=== PATIENT | female | born 1980 | race Caucasian/White ===

== ENCOUNTER → 2016-08-07 | Outpatient (CLI) | payer BC ==
--- NOTE | 2016-08-07 11:00 | DIAGNOSTIC IMAGING REPORT ---
MRI OF THE LEFT ANKLE WITHOUT IV CONTRAST CLINICAL HISTORY: Left foot and heel pain. COMPARISON STUDY: Radiographs of the left foot dated 06/05/2016. TECHNIQUE: MRI of the left ankle is performed utilizing various T1 and T2-weighted sequences in the axial, sagittal, and coronal planes. IV contrast was not administered for this examination. FINDINGS: Normal marrow signal intensity is preserved throughout the visualized bony structures. There is no MRI evidence of fracture. No osteochondral defect is seen in the talar dome. There is maintenance of normal fat within the sinus tarsi. A cutaneous marker has been placed over the lateral aspect of the hindfoot at the level of the calcaneocuboid articulation. No abnormality is identified at this site. This overlies the peroneus brevis tendon which is intact. There is thickening of the peroneus longus tendon as it passes beneath the cuboid, best seen on axial image #30 and coronal image #13. This is consistent with tendinopathy and partial-thickness tear. The majority of the fibers remain intact. The Achilles tendon is normal in morphology and signal intensity. The anterior and posterior tendons are maintained. There is thickening and irregularity of the anterior talofibular ligament, likely related to remote injury. No overlying soft tissue edema is seen. The anterior and posterior tibiofibular ligaments are intact. The deltoid, calcaneofibular, and spring ligaments are intact as visualized. There is a small volume of nonspecific fluid seen posterior to the ankle joint. The regional musculature is normal in bulk and signal intensity. The plantar fascia is normal as visualized. A tiny ganglion cyst is incidentally noted on the lateral aspect of the hindfoot measuring 10 mm as seen on axial image #30. IMPRESSION: 1. The peroneus longus tendon is thickened as it passes beneath the cuboid. This is consistent with tendinopathy and partial-thickness tear. The majority of the fibers remain intact. 2. The peroneus brevis tendon is normal in appearance, as are the anterior and posterior tendons. 3. No bony abnormality is identified. 4. 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 5. Additional changes as above. Dictated: 08/07/2016 10:20 AM Transcribed: 08/07/2016 11:00 AM [facility] Electronically signed by: Zach Blood M.D. 08/07/2016 11:02 AM Dictated Date/Time: 08/07/2016 10:20 AM
== END | disposition home or self-care (01) ==
LOC: C.MRIBC 09:17
PROVIDERS: ATTEND Orthopaedic Surgery
DX: M79.672 Pain in left foot (principal)

== ENCOUNTER → 2017-06-12 | Outpatient (CLI) | payer BC ==
--- NOTE | 2017-06-13 07:21 | DIAGNOSTIC IMAGING REPORT ---
MRI OF THE RIGHT SHOULDER WITHOUT CONTRAST CLINICAL HISTORY: Right shoulder pain. Calcific tendinitis. COMPARISON STUDY: MRI of the right shoulder August 10, 2014 and right shoulder radiographs August 11, 2014. TECHNIQUE: Utilizing a 1.5 [place] magnet and dedicated coil, multiplanar, multiecho imaging of the right shoulder was performed without intravenous or intra-articular contrast. FINDINGS: Alignment of the right shoulder is anatomic. There is no marrow edema or marrow replacement. Note is made of capsular hypertrophy of the acromioclavicular joint consistent with osteoarthritis. There is mild osteoarthritis of the glenohumeral joint. Note is made of fluid within the subacromial/subdeltoid bursa. Glenoid labrum is suboptimally assessed on this nonarthrogram exam however signal within the posterior superior labrum suggests a posterior superior labral tear. Note is made of a 2.2 x 0.7 cm T1 and T2 hypointense abnormality within the superior aspect of the distal infraspinatus and supraspinatus which has increased in size since MRI of August 10, 2014. This is consistent with calcific tendinitis. There is increased signal within the distal fibers of supraspinatus consistent with tendinopathy with full-thickness rotator cuff tear. There is tendinopathy of infraspinatus without full-thickness tear. Subscapularis and teres minor are intact. There is no tendon retraction or significant muscular atrophy. Proximal long head of the biceps tendon is intact. IMPRESSION: 1. Increase in calcific tendinitis involving distal supraspinatus and infraspinatus since exam of August 10, 2014. 2. Increased signal consistent with tendinopathy of distal supraspinous. No full-thickness cuff tear. No tendon retraction or muscular atrophy. 3. Mild to moderate AC joint arthrosis. 4. Suspected posterior superior labral tear. 5. Fluid within the subacromial/subdeltoid bursa. Electronically signed by: George Eckert M.D. 06/13/2017 7:19 AM Dictated Date/Time: 06/12/2017 4:51 PM
== END | disposition home or self-care (01) ==
LOC: C.MRIBC 15:38
PROVIDERS: ATTEND Orthopaedic Surgery
DX: M75.31 Calcific tendinitis of right shoulder (principal)

== ENCOUNTER → 2017-07-10 | Day surgery (SDC) | payer BC ==
[2017-06-30 15:00] VITALS: Ht 162.6 cm; Wt 85.0 kg
[~2017-07-10] VITALS: Ht 162.6 cm; Wt 85.0 kg
[~2017-07-10] MED LIST: ATROPINE SULFATE 0.1 MG/ML 5ML SYR IV PRN; BCPILLS PO; BUPIVACAINE 0.25% 30 ML VIAL ONE; CEFAZOLIN 2000MG IV PUSH 15 ML IV SCH; CITA20TA4 PO; CLR10 PO; EpHEDrine SULFATE INJ 50 MG/ML AMP IV PRN; EpINEphrine INJ 1MG/ML AMP 1 MG/ML AMP ONE; FENTANYL CITRATE INJ 50 MCG/1 ML 2 ML VIAL IV PRN; FENTANYL CITRATE INJ 50 MCG/1 ML 2 ML VIAL ONE; FLUMAZENIL 0.1 MG/1 ML 10 ML VIAL IV PRN; HYDROmorphone INJ 2 MG/ML SYR/VIAL IV PRN; KETO10TA PO; KETOROLAC TROMETHAMINE 30 MG/ML VIAL IV. PRN; LABETALOL HCL IV 5 MG/ML 20ML IV PRN; LACTATED RINGER'S 1000ML 1,000 ML IV SCH; LIDOCAINE HCL 2% 2 ML VIAL (20MG/ML) ONE; MELO15TA10 PO; MEPERIDINE HCL 25 MG/ML CARP IV PRN; METOPROLOL TARTRATE 1 MG/ML VIAL ONE; MIDAZOLAM HCL 1 MG/ML 2ML VIAL ONE; NALOXONE HCL 0.4 MG/1 ML VIAL/CARP IV PRN; NURSING VERBAL MED ORDER ONE; ONDANSETRON INJ 2 MG/ML 2 ML VIAL IV PRN; ONDANSETRON INJ 2 MG/ML 2 ML VIAL ONE; OXYC-57 PO; OXYCODONE/ACETAMINOPHEN 5-325 TAB PO PRN; PHENYLEPHRINE 100MCG/ML 5ML SYR IV PRN; PROPOFOL IV EMULSION 10 MG/ML 20 ML VIAL ONE; ROPIVACAINE 0.5% 5 MG/ML 30 ML VIAL ONE; SCOPOLAMINE 1.5 MG TDSY TD ONE; SODIUM CHLORIDE 0.9% 1000ML 1,000 ML IV SCH
--- NOTE | 2017-07-10 10:18 | History & Physical Bridge - SC ---
H&P Re-Evaluation Bridge Note: I have examined the patient, reviewed the History & Physical and in the interval since the performance of the History & Physical I have noted the following changes of clinical significance: No changes noted
[2017-07-10] MEDS: EpINEphrine HCL INJ 1 MG/ML 1ML SYRINGE ONE ×2 (11:35→11:48)
--- NOTE | 2017-07-10 11:58 | [facility] Post Operative Brief Note ---
Immediate Operative Summary Operative Date July 10, 2017. Pre-Operative Diagnosis Right Shoulder Bicepts Tendinitis, Calcific Tendinitis Post-Operative Diagnosis Same Procedure(s) Performed Right Shoulder Arthroscopy With Extensive Debridement, Rotator Cuff Repair Surgeon Dr. Paul Car Scrubber Surgeon(s) Cole Addison PA-C Estimated Blood Loss 5 ml Findings Consistent with Post-Op Diagnosis Specimens None Anesthesia Type General Regional Complication(s) none Disposition Disposition: Recovery Room / PACU
--- NOTE | 2017-07-10 12:11 | Discharge Instructions-SurgCtr ---
Discharge Instructions Date of Service July 10, 2017. Visit Reason for Visit: Biceps Tendinitis, Calcific Tendinitis Discharge Discharge Diagnosis / Problem: SAME ABOVE Discharge Goals Goal(s): Decrease discomfort, Improve function Medications Stopped Medications Name(s): stopped Mobic over 10 days no blood thinners Restart Stopped Medication(s): MAY RESTART WHEN FINISHED WITH TORADOL Activity Recommendations Activity Limitations: as noted below Anesthesia . Post Anesthesia Instructions: If you have had General Anesthesia or IV Sedation: * Do not drive today. * Resume driving when surgeon permits. * Do not make important decisions or sign legal documents today. * Call surgeon for: 1. Temperature elevations greater than 101 degrees F. 2. Uncontrollable pain. 3. Excessive bleeding. 4. Persistent nausea and vomiting. 5. Medication intolerance (nausea, vomiting or rash). * For nausea and vomiting use only clear liquids such as: tea, soda, bouillon until nausea subsides, then gradually increase diet as tolerated. * If you have any concerns or questions, call your surgeon's office. If physician is unavailable and it is an emergency, call 911 or go to the nearest emergency room. . Instructions / Follow-Up Instructions / Follow-Up MEDICATIONS: * Resume previous medications unless instructed otherwise by your surgeon. * Always take pain medication on a full stomach or with food to avoid upset stomach. * Do not drink alcohol or drive while taking narcotics. * Ibuprofen or Tylenol may be taken if narcotic not needed. SPECIAL CARE INSTRUCTIONS: __ None _x_ Keep extremity elevated and iced x 48 hours; apply ice 20-30 minutes 8-10 times/day. May remove at night. _x_ Sling (MAY REMOVE AFTER 48 HOURS ONLY TO SHOWER AND FOR THERAPY) __24 hrs/day __ Remove at night __ Shoulder Immobilizer __ 24 hrs/day __ Remove at night _X_ Dressing __ Maintain until seen in office, may shower with plastic over site _X_ Remove dressings in 24-48 hours and then may shower _X_ Cover incisions with band-aids after showering __ Do not remove steri-strips Call physician if chills or temperature rises above 102 degrees or pain unrelieved by prescribed pain medications at . . Diet Recommendations Home Diet: no limitations Fluid Restriction: None Procedures Procedures Performed: Right Shoulder Arthroscopy With Extensive Debridement, Rotator Cuff Repair Pending Studies Studies pending at discharge: no Work Instructions Return To Work: after follow-up Medical Emergencies . Who to Call and When: Medical Emergencies: If at any time you feel your situation is an emergency, please call 911 immediately. . Non-Emergent Contact Non-Emergency issues call your: Primary Care Provider Call Non-Emergent contact if: you have a fever, temperature is above 101.5 . . "Provider Documentation" section prepared by Abel Addison. .
--- NOTE | 2017-07-10 13:03 | Anesthesia Progress Nt - [facility] ---
Anesthesia Post Op Note Date & Time July 10, 2017 at 13:03 Vital Signs Pain Intensity: 2 Vital Signs Past 12 Hours Date Time Temp Pulse Resp B/P (MAP) Pulse Ox O2 Delivery O2 Flow Rate FiO2 07/10/17 13:01 122/68 07/10/17 13:00 94 9 07/10/17 13:00 94 9 96 07/10/17 12:57 36.4 95 12 122/68 95 Room Air 07/10/17 12:56 127/63 07/10/17 12:55 104 18 07/10/17 12:55 110 18 92 07/10/17 12:51 110/60 07/10/17 12:50 100 17 94 07/10/17 12:50 99 17 07/10/17 12:46 115/57 07/10/17 12:45 93 8 07/10/17 12:45 93 8 94 07/10/17 12:41 118/72 07/10/17 12:40 105 19 94 07/10/17 12:40 106 19 07/10/17 12:36 121/65 07/10/17 12:35 116 17 07/10/17 12:35 114 17 99 07/10/17 12:31 145/69 07/10/17 12:30 103 16 99 07/10/17 12:30 103 16 07/10/17 12:26 118/71 07/10/17 12:25 89 12 100 07/10/17 12:25 90 12 07/10/17 12:21 115/68 07/10/17 12:20 96 14 100 07/10/17 12:20 96 14 07/10/17 12:16 123/69 07/10/17 12:15 90 12 07/10/17 12:15 90 12 100 07/10/17 12:11 120/73 07/10/17 12:10 97 15 07/10/17 12:10 97 15 100 07/10/17 12:07 117/62 07/10/17 12:06 36.4 104 16 117/62 96 Mask 6 07/10/17 11:00 85 19 99 07/10/17 11:00 85 07/10/17 10:59 67 07/10/17 10:59 68 0 99 07/10/17 10:56 133/73 07/10/17 10:55 115/61 5/24/18 10:54 78 95 07/10/17 10:54 90 07/10/17 10:49 70 07/10/17 10:49 70 0 97 07/10/17 10:44 74 0 97 07/10/17 10:44 71 07/10/17 10:39 67 99 07/10/17 10:39 69 07/10/17 10:34 63 8 07/10/17 10:34 8 07/10/17 10:13 36.7 63 16 139/54 (82) 98 Room Air Notes Mental Status: alert / awake / arousable, participated in evaluation Pt Amnestic to Procedure: Yes Nausea / Vomiting: adequately controlled Pain: adequately controlled Airway Patency, RR, SpO2: stable & adequate BP & HR: stable & adequate Hydration State: stable & adequate Anesthetic Complications: no major complications apparent
[2017-07-10 13:13] VITALS: TEMP 36.6
[2017-07-10 13:38] VITALS: BP 134/76; PULSE 93; O2SAT 96
--- NOTE | 2017-07-10 14:06 | OPERATIVE REPORT ---
DATE OF OPERATION: 07/10/2017 PREOPERATIVE DIAGNOSIS: Large calcific tendonitis of the right shoulder. POSTOPERATIVE DIAGNOSIS: Same. PROCEDURES: Right shoulder arthroscopy with extensive debridement and margin convergence rotator cuff repair. SURGEON: Dr. Vinny Paul. STARS ANALYTICAL LEAD: Abel Addison PA-C, whose assistance was necessary for positioning the arm and help with instrumentation. ANESTHESIA: General with a right interscalene nerve block. COMPLICATIONS: None. CONDITION: Stable to PACU. INDICATIONS: Minda is a pleasant 36-year-old female who presented to my office with complaints of chronic increasing right shoulder pain. MRI and clinical examination were diagnostic for a large calcific tendonitis of the right shoulder. After failing conservative treatment, she elected to undergo debridement. DESCRIPTION OF PROCEDURE: On 07/10/2017, she arrived at [facility] for the above procedure. She was seen in the preoperative holding and the operative extremity was identified and signed. She was given a preoperative antibiotic and a right interscalene nerve block. She was taken back to the operating room, laid on the table in supine position and put under general anesthesia. She was then put into the beachchair position. The right shoulder was prepped and draped in sterile fashion. Time-out was done. The patient's operative extremity was properly identified. A scope was introduced in the posterior portal. Diagnostic arthroscopy showed no cartilage damage to the humeral head or the glenoid. There was a little fraying of the anterior labrum. There was a little fraying of the undersurface of the supraspinatus near the biceps saige mechanism. The biceps tendon was intact and went through a normal size biceps saige mechanism. The supraspinatus, infraspinatus, teres minor and subscapularis were intact. An anterior portal was made. A shaver was used to do a debridement of the intraarticular structures. The biceps tendon was pulled into the joint and no pathology was identified. The scope was then put into the subacromial space. A lateral portal was made. A shaver was used to do a complete subacromial and subdeltoid bursectomy. I did not see any reason to do an acromioplasty. An additional anterolateral portal was made. A spinal needle and a probe were used to open up the area of calcific tendinitis. A shaver was used to do an extensive debridement including complete removal of the calcific tendinitis. Multiple pictures were taken. Once the calcific tendonitis was removed, it did leave a divot within the rotator cuff. A Judith cannula was placed in one of the anterolateral portals and the rotator cuff was fixed with two margin convergence sutures using #2 FiberWire suture. This gave a nice repair and multiple pictures were taken. A final debridement was done and final diagnostic arthroscopy showed no additional pathology. Arthroscopic instruments were removed from the shoulder. Portal sites were closed with 3-0 nylon. She was then placed in a soft dressing and a regular arm sling. She was then extubated, transferred to a [facility] and taken to postanesthesia care unit in stable condition. She tolerated the procedure well. I attest to the content of the Intraoperative Record and any orders documented therein. Any exception s are noted below.
== END | disposition home or self-care (01) ==
LOC: X.SURG 10:01
PROVIDERS: ATTEND Orthopaedic Surgery
DX: M75.31 Calcific tendinitis of right shoulder (principal); M75.101 Unspecified rotator cuff tear or rupture of right shoulder, not specified as traumatic; F32.9 Major depressive disorder, single episode, unspecified; J45.909 Unspecified asthma, uncomplicated; Z87.442 Personal history of urinary calculi; Z88.1 Allergy status to other antibiotic agents; Z79.3 Long term (current) use of hormonal contraceptives; Z88.2 Allergy status to sulfonamides; N18.9 Chronic kidney disease, unspecified; F41.9 Anxiety disorder, unspecified; E66.9 Obesity, unspecified